=== PATIENT | female | born 1940 | race Caucasian/White ===

== ENCOUNTER → 2018-08-14 11:56 | Outpatient (CLI) | payer MEDICARE, SELFPAY ==
--- NOTE | 2018-08-14 | DI.ECHO.S_ITS ---
[facility]---------+ [facility] +---------+ : : [address] : [place] : : : : [id number] : : : : Phone: [phone] +---------+ Echocardiogram Report + + :Name: CATHY HERNANDEZ Study Date: 08/14/2018 Height: 64 in : :[facility] Weight: 156 lb : : Gender: Female BSA: 1.8 m2 : :: 1940 Age: 78 yrs BP: 160/60 mmHg: :Reason For Study: Murmur : :Ordering Physician: Bethel : :Calixto Diaz Performed By: Manuela Pickering : :Referring: Dr. Julianna Godwin : + + Interpretation Summary 1) Normal left ventricular thickness, size, wall motion, and systolic function (EF 60-65%). 2) Normal right ventricular size and function. 3) No significant valvular abnormalities. 4) Hypertension present during the study (BP 160/60 mmHg). 5) No prior Echo available for comparison. Procedure: A two-dimensional transthoracic echocardiogram with color flow and Doppler was performed. The study quality was technically good. There is no prior echocardiogram noted for this patient. The patient was in normal sinus rhythm during the exam. Left Ventricle: The left ventricle is normal in size, wall thickness, and systolic function without any focal wall motion abnormalities. The ejection fraction is estimated to be 60-65%. Assessment of diastolic parameters indicates a relaxation abnormality of the left ventricle, consistent with normal filling pressures. Right Ventricle: The right ventricle grossly appears normal in size with probable normal systolic function. Atria: The left atrium is moderately dilated. The right atrium is mildly dilated. The interatrial septum is intact with no evidence for an atrial septal defect. Mitral Valve: The mitral valve is normal in structure and function. There is no mitral regurgitation noted. Aortic Valve: The aortic valve is trileaflet. The aortic valve opens well. There is no aortic valve stenosis. No aortic regurgitation is present. Tricuspid Valve: The tricuspid valve leaflets are thin and pliable. There is trace tricuspid regurgitation. The right ventricular systolic pressure is estimated at 30 mmHg assuming a right atrial pressure of 3 mm Hg. Pulmonic Valve: The pulmonic valve is normal in structure and function. There is trace pulmonic regurgitation. Great Vessels: The aortic root is normal size. The dimensions of the ascending aorta are normal. The IVC is of normal diameter and collapses greater than 50% with a sniff. This suggests a low right atrial pressure of 3 mm Hg. Pericardium/ Pleura There is no pericardial effusion. There is no pleural effusion. MMode/2D Measurements & Calculations LVIDd: 4.9 cm Ao root diam: 3.2 cm LVIDs: 3.0 cm Aortic Jxn: 2.7 cm FS: 39.0 % asc Aorta Diam: 3.4 cm EPSS: 0.55 cm Ao Arch Diam (Prox Trans): 2.5 cm IVSd: 0.69 cm LVPWd: 0.78 cm LV albright. diameter/BSA (cm/m^2): 2.8 LV sys. diameter/BSA (cm/m^2): 1.7 LA dimension: 3.9 cm RA long axis: 5.2 cm LA A2 area: 23.6 cm2 RA area: 20.3 cm2 LA A4 area: 21.3 cm2 RA vol: 67.3 ml LA length (vol): 5.3 cm RA : 38.3 ml/m2 LA vol: 79.6 ml IVC diam: 1.9 cm LA vol index: 45.2 ml/m2 RVDd major: 5.6 cm RVD1 (basal): 3.8 cm RVD2 (mid): 2.7 cm Doppler Measurements & Calculations Ao V2 max: 159.0 cm/sec MV E max guille: 101.4 cm/sec Ao V2 mean: 112.0 cm/sec MV A max guille: 104.9 cm/sec Ao max P.1 mmHg MV E/A: 0.97 Ao mean P.5 mmHg Med Peak E' Guille: 7.5 cm/sec Ao V2 VTI: 42.3 cm E/E' med: 13.6 Lat Peak E' Guille: 10.0 cm/sec E/E' lat: 10.1 E/e' average: 11.9 MV dec time: 0.24 sec MV P1/2t: 68.6 msec TR max guille: 257.3 cm/sec MV P1/2t max guille: 101.7 cm/sec TR max P.5 mmHg MVA(P1/2t): 3.2 cm2 PA V2 max: 94.4 cm/sec PA V2 mean: 57.5 cm/sec PA mean P.6 mmHg PA Accel Time: 0.18 sec Reading Physician:02:20 PM
== END ==
PROVIDERS: Visit Provider Internal Medicine Cardiovascular Disease
DX: R01.1 Cardiac murmur, unspecified (principal)
CPT/HCPCS: 93306

== ENCOUNTER → 2019-07-31 14:09 | Outpatient (CLI) | payer MEDICARE, SELFPAY ==
[2019-07-31 16:06] LABS: Blood Urea Nitrogen 28 mg/dL (7-17); Calcium 10.7 mg/dL (8.4-10.2); Carbon Dioxide 29 mmol/L (22-32); Chloride 95 mmol/L (98-107); Cholesterol 171 mg/dL (140-199); Estimated Glomerular Filt Rate 53.6 mL/min (>60); Glucose 93 mg/dL (80-110); HDL Cholesterol 99 mg/dL (40-60); HEMOLYSIS < 15 (0-50); LDL Cholesterol Calculated 59 mg/dL (<100); Potassium 4.3 mmol/L (3.4-5.1); Sodium 136 mmol/L (137-145); Triglycerides 67 mg/dL (35-150)
[2019-07-31 16:09] LABS: Add Manual Diff / Slide Review NO; Basophils Absolute Auto 100 /uL (0-100); Basophils Percent Auto 0.8 % (0-2); Eosinophils Absolute Auto 200 /uL (0-450); Eosinophils Percent Auto 3.2 % (2-4); Hemoglobin 11.4 g/dL (12.0-16.0); Lymphocytes Absolute Auto 1700 /uL (1100-4500); Lymphocytes Percent Auto 22.9 % (25-40); Mean Corpuscular HGB Conc 34.6 % (30-36); Mean Corpuscular Hemoglobin 32.1 PG (26-34); Mean Corpuscular Volume 92.7 fL (80-100); Monocytes Absolute Auto 800 /uL (0-900); Monocytes Percent Auto 10.1 % (3-14); Neutrophils Absolute Auto 4700 /uL (1500-7000); Platelet Count 244 X10^3/uL (150-400); Red Blood Cell Count 3.56 X10^6/uL (4.0-5.2); White Blood Cell Count 7.4 X10^3/uL (4.5-11.0)
== END ==
PROVIDERS: Visit Provider Internal Medicine Cardiovascular Disease
DX: I10 Essential (primary) hypertension (principal)
CPT/HCPCS: 36415; 80048; 80061; 85025

== ENCOUNTER → 2024-03-07 08:07 | Outpatient (CLI) | payer MEDICARE, SELFPAY ==
--- NOTE | 2024-03-07 08:09 | DI.ECHO.S_ITS ---
[facility]---------+ [facility] +---------+ : : [address] [place] : : : : [id number] : : : : Phone: [phone]---------+ Echocardiogram Report + + :Name: CATHY HERNANDEZ Study Date: 03/07/2024 Height: 64 in : :[facility] ReadingLocation: Weight: 155 lb : : Gender: Female BSA: 1.8 m2 : :: 1940 Age: 83 yrs BP: 118/82 mmHg: :Reason For Study: LIGHTHEADED : :Ordering Physician: SEBASTIAN, : :NORY Performed By: Henna Walker : :Referring: NORY DIAZ : + + Interpretation Summary 1) Normal left ventricular thickness, size, wall motion, and systolic function (EF 60-65%). 2) Normal right ventricular size and function. 3) No significant valvular abnormalities. 4) Compared to the Echo done 08/14/2018, no significant change. Procedure: A two-dimensional transthoracic echocardiogram with color flow and Doppler was performed. The study quality was technically adequate. Comparison is made with the echocardiogram of 08/14/2018. The patient was in sinus bradycardia with heart rates between 51-57 bpm during the exam. Left Ventricle: The left ventricle is normal in size and wall thickness. The ejection fraction is estimated to be 60-65%. Left ventricular systolic function appears normal without focal wall motion abnormalities. Diastolic parameters suggest a relaxation abnormality of the left ventricle, consistent with probable normal filling pressures. Right Ventricle: The right ventricle is normal in size and function. Atria: The left atrium is moderately dilated. Right atrial size is normal. There is no Doppler evidence for an interatrial shunt. Mitral Valve: The mitral valve is normal in structure and function. There is trace mitral regurgitation. Aortic Valve: The aortic valve is trileaflet. The aortic valve opens well. There is no aortic valve stenosis. No aortic regurgitation is present. Tricuspid Valve: The tricuspid valve is normal in structure and function. There is mild tricuspid regurgitation. The right ventricular systolic pressure is estimated to be at least 32 mmHg based on an estimated right atrial pressure of 3 mm Hg. Pulmonic Valve: The pulmonic valve leaflets are thin and pliable; valve motion is normal. There is a trace or physiologic amount of pulmonic regurgitation. Great Vessels: The aortic root is normal size. The dimensions of the ascending aorta are normal. The IVC is of normal diameter and collapses greater than 50% with a sniff. This suggests a low right atrial pressure of 3 mm Hg. Pericardium/ Pleura There is no pericardial effusion. There is no pleural effusion. MMode/2D Measurements & Calculations LVIDd: 4.8 cm LVOT diam: 2.0 cm LVIDs: 3.3 cm Ao root diam: 3.2 cm FS: 30.7 % asc Aorta Diam: 3.3 cm EPSS: 0.32 cm Ao Arch Diam (Prox Trans): 2.4 cm IVSd: 0.80 cm LVPWd: 0.85 cm LV albright. diameter/BSA (cm/m^2): 2.7 LV sys. diameter/BSA (cm/m^2): 1.9 LA A2 area: 21.2 cm2 RA long axis: 5.3 cm LA A4 area: 18.3 cm2 RA area: 18.5 cm2 LA length (vol): 5.0 cm RA vol: 54.6 ml LA vol: 65.1 ml RA : 31.1 ml/m2 LA vol index: 37.1 ml/m2 IVC diam: 1.4 cm RVD1 (basal): 3.6 cm RVD2 (mid): 2.9 cm TAPSE: 2.2 cm Doppler Measurements & Calculations Ao V2 max: 162.5 cm/sec LVOT Max Guille: 119.4 cm/sec Ao V2 mean: 114.2 cm/sec LV V1 max P.7 mmHg Ao max P.6 mmHg LV V1 VTI: 30.7 cm Ao mean P.8 mmHg SEAN(I,D): 2.2 cm2 Ao V2 VTI: 42.6 cm SEAN(V,D): 2.2 cm2 sev ratio: 0.72 SEAN indexed to BSA (cm^2/m^2): 1.2 MV E max guille: 75.8 cm/sec TR max guille: 268.6 cm/sec MV A max guille: 112.8 cm/sec TR max P.9 mmHg MV E/A: 0.67 PA V2 max: 103.2 cm/sec Med Peak E' Guille: 9.8 cm/sec PA V2 mean: 74.6 cm/sec E/E' med: 7.8 PA mean P.4 mmHg Lat Peak E' Guille: 8.6 cm/sec PA pr(Accel): 25.9 mmHg E/E' lat: 8.8 E/e' average: 8.3 MV dec time: 0.34 sec SV(LVOT): 92.1 ml Reading Physician:10:49 AM
== END ==
LOC: ECHO 08:09
PROVIDERS: Referring Provider Internal Medicine Cardiovascular Disease; Visit Provider Internal Medicine Cardiovascular Disease
DX: R42 Dizziness and giddiness (principal); I07.1 Rheumatic tricuspid insufficiency
CPT/HCPCS: 93306

== ENCOUNTER → 2024-10-31 14:20 | Outpatient (CLI) | payer MEDICARE, SELFPAY ==
[2024-10-31 14:59] LABS: Add Manual Diff / Slide Review NO; Basophils Absolute Auto 100 /uL (0-100); Basophils Percent Auto 0.8 % (0-2); Eosinophils Absolute Auto 200 /uL (0-450); Eosinophils Percent Auto 3.3 % (2-4); Hematocrit 33.7 % (36-46); Hemoglobin 11.3 g/dL (12.0-16.0); Lymphocytes Absolute Auto 1400 /uL (1100-4500); Lymphocytes Percent Auto 20.8 % (25-40); Mean Corpuscular HGB Conc 33.6 % (30-36); Mean Corpuscular Hemoglobin 31.9 PG (26-34); Mean Corpuscular Volume 94.9 fL (80-100); Monocytes Absolute Auto 800 /uL (0-900); Monocytes Percent Auto 11.9 % (3-14); Neutrophils Absolute Auto 4400 /uL (1500-7000); Neutrophils Percent Auto 63.2 % (50-75); Platelet Count 248 X10^3/uL (150-400); Red Blood Cell Count 3.54 X10^6/uL (4.0-5.2); Red Cell Distribution Width 13.5 % (11.6-14.8); White Blood Cell Count 6.9 X10^3/uL (4.5-11.0)
[2024-10-31 15:25] LABS: BUN Creatinine Ratio 24.8 (6-22); Blood Urea Nitrogen 29 mg/dL (7-17); Calcium 10.8 mg/dL (8.4-10.2); Carbon Dioxide 28 mmol/L (22-32); Chloride 103 mmol/L (98-107); Cholesterol 172 mg/dL (140-199); Estimated Glomerular Filt Rate 46 mL/min (>60); Glucose 100 mg/dL (80-110); HDL Cholesterol 104 mg/dL (40-60); HEMOLYSIS < 15 (0-50); LDL Cholesterol Calculated 52 mg/dL (<100); Potassium 4.5 mmol/L (3.4-5.1); Sodium 139 mmol/L (137-145); Triglycerides 81 mg/dL (35-150)
[2024-10-31 15:55] LABS: TSH w/ Reflex to FT4 6.94 uIU/mL (0.47-4.68)
[2024-10-31 17:12] LABS: Free T4, Direct Thyroxine 0.84 ng/dL (0.78-2.19)
== END ==
PROVIDERS: PCP Nurse Practitioner Family; Referring Provider Nurse Practitioner Family; Visit Provider Nurse Practitioner Family
DX: E78.5 Hyperlipidemia, unspecified (principal); I10 Essential (primary) hypertension; F41.9 Anxiety disorder, unspecified; F32.A Depression, unspecified
CPT/HCPCS: 36415; 80048; 80061; 84439; 84443; 85025

== ENCOUNTER → 2024-11-06 15:04 | Outpatient (CLI) | payer MEDICARE, SELFPAY ==
[2024-11-06 15:38] LABS: Creatinine Urine Random 87.83 mg/dL
[2024-11-06 15:42] LABS: Microalbumin Urine Random 1.3 mg/dL (0-1.6)
== END ==
PROVIDERS: PCP Nurse Practitioner Family; Referring Provider Nurse Practitioner Family; Visit Provider Nurse Practitioner Family
DX: I10 Essential (primary) hypertension (principal); E78.5 Hyperlipidemia, unspecified; F41.9 Anxiety disorder, unspecified; F32.A Depression, unspecified
CPT/HCPCS: 82043; 82570

== ENCOUNTER → 2025-01-23 14:56 | Outpatient (CLI) | payer MEDICARE, SELFPAY ==
[2025-01-23 15:40] LABS: Add Manual Diff / Slide Review NO; Basophils Absolute Auto 0 /uL (0-100); Basophils Percent Auto 0.7 % (0-2); Eosinophils Absolute Auto 200 /uL (0-450); Eosinophils Percent Auto 2.6 % (2-4); Hematocrit 33.9 % (36-46); Hemoglobin 11.5 g/dL (12.0-16.0); Lymphocytes Absolute Auto 1500 /uL (1100-4500); Lymphocytes Percent Auto 21.8 % (25-40); Mean Corpuscular HGB Conc 33.8 % (30-36); Mean Corpuscular Hemoglobin 31.6 PG (26-34); Mean Corpuscular Volume 93.7 fL (80-100); Monocytes Absolute Auto 800 /uL (0-900); Monocytes Percent Auto 11.7 % (3-14); Neutrophils Absolute Auto 4200 /uL (1500-7000); Neutrophils Percent Auto 63.2 % (50-75); Platelet Count 247 X10^3/uL (150-400); Red Blood Cell Count 3.62 X10^6/uL (4.0-5.2); Red Cell Distribution Width 13.6 % (11.6-14.8); White Blood Cell Count 6.7 X10^3/uL (4.5-11.0)
[2025-01-23 15:49] LABS: Hemoglobin A1C% w Est Avg Glu 4.8 % (4.0-6.0)
[2025-01-23 16:07] LABS: HEMOLYSIS < 15 (0-50); Iron 78 ug/dL (37-170)
[2025-01-23 16:11] LABS: Alanine Aminotransferase 21 IU/L (<35); Albumin 4.8 g/dL (3.5-5.0); Albumin Globulin Ratio 1.7 (1.0-2.8); Alkaline Phosphatase 69 U/L (38-126); Aspartate Aminotransferase 44 IU/L (14-36); BUN Creatinine Ratio 23.4 (6-22); Bilirubin Total 0.4 mg/dL (0.2-1.3); Blood Urea Nitrogen 26 mg/dL (7-17); Calcium 10.5 mg/dL (8.4-10.2); Carbon Dioxide 31 mmol/L (22-32); Chloride 101 mmol/L (98-107); Estimated Glomerular Filt Rate 49 mL/min (>60); Globulin 2.8 g/dL (1.7-4.1); Glucose 101 mg/dL (80-110); HEMOLYSIS < 15 (0-50); Potassium 4.4 mmol/L (3.4-5.1); Sodium 138 mmol/L (137-145); Total Protein 7.6 g/dL (6.3-8.2)
[2025-01-23 16:20] LABS: Percent Iron Saturation 28 % (15-50); Total Iron Binding Capacity 278 ug/dL (265-497); Transferrin 256 mg/dL (206-381)
[2025-01-23 16:40] LABS: TSH w/ Reflex to FT4 6.24 uIU/mL (0.47-4.68)
[2025-01-23 16:43] LABS: Ferritin 197 ng/mL (11-264)
[2025-01-23 17:08] LABS: Free T4, Direct Thyroxine 0.85 ng/dL (0.78-2.19)
[2025-01-23 17:15] LABS: Folate > 20.0 ng/mL (2.76-20.0); Vitamin B12 > 1000 pg/mL (239-931)
[2025-01-24 08:13] LABS: Calcium 10.5 mg/dL (8.7-10.3); Parathyroid Hormone, Intact 32 pg/mL (15-65)
== END ==
LOC: LAB 14:58
PROVIDERS: PCP Nurse Practitioner Family; Referring Provider Nurse Practitioner Family; Visit Provider Nurse Practitioner Family
DX: R35.89 Other polyuria (principal); Z13.1 Encounter for screening for diabetes mellitus; D64.9 Anemia, unspecified; F32.A Depression, unspecified; I10 Essential (primary) hypertension; E78.5 Hyperlipidemia, unspecified; R79.89 Other specified abnormal findings of blood chemistry; F41.9 Anxiety disorder, unspecified
CPT/HCPCS: 36415; 80053; 82310; 82607; 82728; 82746; 83036; 83540; 83550; 83970; 84439; 84443; 85025

== ENCOUNTER → 2025-02-26 15:01 | Outpatient (CLI) | payer MEDICARE, SELFPAY ==
[2025-02-26 16:29] LABS: TSH w/ Reflex to FT4 5.53 uIU/mL (0.47-4.68)
[2025-02-26 16:56] LABS: Free T4, Direct Thyroxine 0.97 ng/dL (0.78-2.19)
== END ==
PROVIDERS: PCP Nurse Practitioner Family; Referring Provider Nurse Practitioner Family; Visit Provider Nurse Practitioner Family
DX: E03.9 Hypothyroidism, unspecified (principal); R79.89 Other specified abnormal findings of blood chemistry
CPT/HCPCS: 36415; 84439; 84443

== ENCOUNTER → 2025-03-19 15:06 | Outpatient (CLI) | payer MEDICARE, SELFPAY ==
[2025-03-19 17:00] LABS: TSH w/ Reflex to FT4 6.03 uIU/mL (0.47-4.68)
[2025-03-19 17:29] LABS: Free T4, Direct Thyroxine 1.09 ng/dL (0.78-2.19)
[2025-03-21 11:13] LABS: Fecal Immunochemical Test Negative (Negative)
== END ==
PROVIDERS: PCP Nurse Practitioner Family; Referring Provider Nurse Practitioner Family; Visit Provider Nurse Practitioner Family
DX: E03.9 Hypothyroidism, unspecified (principal); Z12.11 Encounter for screening for malignant neoplasm of colon; M19.90 Unspecified osteoarthritis, unspecified site; F32.A Depression, unspecified; F41.9 Anxiety disorder, unspecified; E78.5 Hyperlipidemia, unspecified; I10 Essential (primary) hypertension
CPT/HCPCS: 36415; 82274; 84439; 84443

== ENCOUNTER → 2025-04-16 15:06 | Outpatient (CLI) | payer MEDICARE, SELFPAY ==
[2025-04-16 16:40] LABS: TSH w/ Reflex to FT4 4.67 uIU/mL (0.47-4.68)
== END ==
PROVIDERS: PCP Nurse Practitioner Family; Referring Provider Nurse Practitioner Family; Visit Provider Nurse Practitioner Family
DX: E03.9 Hypothyroidism, unspecified (principal)
CPT/HCPCS: 36415; 84443

== ENCOUNTER → 2025-11-04 10:19 | Outpatient (CLI) | payer MEDICARE, SELFPAY ==
[2025-11-04 11:26] LABS: Hematocrit 31.3 % (36-46); Hemoglobin 10.7 g/dL (12.0-16.0); Mean Corpuscular HGB Conc 34.1 % (30-36); Mean Corpuscular Hemoglobin 31.9 PG (26-34); Mean Corpuscular Volume 93.7 fL (80-100); Platelet Count 256 X10^3/uL (150-400)
[2025-11-04 12:00] LABS: Blood Urea Nitrogen 19 mg/dL (7-17); Calcium 10.0 mg/dL (8.4-10.2); Carbon Dioxide 25 mmol/L (22-32); Chloride 105 mmol/L (98-107); Cholesterol 151 mg/dL (140-199); Estimated Glomerular Filt Rate > 60 mL/min (>60); Glucose 99 mg/dL (70-99); HDL Cholesterol 79 mg/dL (40-60); HEMOLYSIS < 15 (0-50); Potassium 5.0 mmol/L (3.4-5.1); Sodium 138 mmol/L (137-145); Triglycerides 84 mg/dL (35-150)
[2025-11-04 12:10] LABS: Vitamin D 25 Hydroxy (D3) 57.5 ng/mL (30.0-100.0)
[2025-11-04 12:31] LABS: TSH w/ Reflex to FT4 4.04 uIU/mL (0.47-4.68)
[2025-11-04 12:50] LABS: Vitamin B12 > 1000 pg/mL (239-931)
== END ==
PROVIDERS: PCP Nurse Practitioner Family; Referring Provider Nurse Practitioner Family; Visit Provider Nurse Practitioner Family
DX: E78.5 Hyperlipidemia, unspecified (principal); I10 Essential (primary) hypertension; E03.9 Hypothyroidism, unspecified; R41.89 Other symptoms and signs involving cognitive functions and awareness; F41.9 Anxiety disorder, unspecified; F32.A Depression, unspecified
CPT/HCPCS: 80048; 80061; 82306; 82607; 84443; 85027